=== PATIENT | female | born 1985 | race Caucasian/White ===

== ENCOUNTER 2017-02-13 15:28 | Emergency (ER) | payer OTHER ==
[~2017-02-13] VITALS: Ht 162.6 cm; Wt 84.4 kg
--- NOTE | ~2017-02-13 | CT71 ---
[facility] A Service [facility] RADIOLOGY TEXT RESULTS PATIENT: EARLE CURTIS LOCATION: SED : 83 UNIT #: [id number] AGE: [address]: Tiara Naik MD SEX: F ORDER DR: [id number] [address] [address] [id number] E MR#: [id number] Acc #: [id number] NAME: EARLE CURTIS : 1985 SEX: F STUDY DATE/TIME: 02/13/2017 21:45 UNIT: SED ROOM: STUDY DESCRIPTION: CT Head Wo Contrast Attending Physician: Tiara Naik M.D. Ordering Physician: Tiara Naik M.D. Primary Care Physician: No Primary Care Physician MEDICAL IMAGING REPORT This report is preliminary unless electronic signature is present. EXAM CT head. INDICATION Right-side body numbness and tingling for [address] of the head without contrast. This CT exam was performed with one or more of the following radiation dose reduction techniques: automatic exposure control, adjustment of mA and/or kV according to patient size, and iterative reconstruction. COMPARISON None available. FINDINGS Axial noncontrast images were obtained from the skull base to the vertex. Ventricular size and configuration are normal. There is no evidence of acute infarct or hemorrhage. There are no extraaxial fluid collections. No mass lesion or mass effect is seen. There are no skull fractures. IMPRESSION Normal noncontrast head CT. Dictated by... Get Cunha M.D. THIS IS AN ELECTRONICALLY VERIFIED REPORT Get Cunha M.D. at 02/14/2017 7:52 PM [facility] A Service [facility] RADIOLOGY TEXT RESULTS PATIENT: EARLE CURTIS LOCATION: SED : 83 UNIT #: [id number] AGE: [address]: Tiara Naik MD SEX: F ORDER DR: Marcial TD: 02/14/2017 19:27 JOB #: [id number] MEDICAL IMAGING REPORT Page 1 of 1
--- NOTE | ~2017-02-13 | CT17 ---
[facility] A Service of [facility] RADIOLOGY TEXT RESULTS PATIENT: EARLE CURTIS LOCATION: SED : 83 UNIT #: [id number] AGE: [address]: Tiara Naik MD SEX: F ORDER DR: [id number] [place] [id number] E MR#: [id number] Acc #: [id number] NAME: EARLE CURTIS : 1985 SEX: F STUDY DATE/TIME: 02/13/2017 21:48 UNIT: SED ROOM: STUDY DESCRIPTION: CT Angio Head Attending Physician: Tiara aNik M.D. Ordering Physician: Tiara Naik M.D. Primary Care Physician: Primary Care Physician No MEDICAL IMAGING REPORT This report is preliminary unless electronic signature is present. EXAM CT angio head 02/13 at 21:48 INDICATIONS Right side body numbness and tingling that started Wednesday of this week. FINDINGS Please see CT ANGIO NECK report for combined text results. Dictated by... Robert Barraza Jr., M.D. THIS IS AN ELECTRONICALLY VERIFIED REPORT Robert Barraza Jr., M.D. at 02/15/2017 3:12 AM KERI/viral TD: 02/14/2017 19:57 JOB #: [id number] MEDICAL IMAGING REPORT Page 1 of 1
--- NOTE | ~2017-02-13 | CT23 ---
[facility] A Service of [facility] RADIOLOGY TEXT RESULTS PATIENT: EARLE CURTIS LOCATION: SED : 83 UNIT #: [id number] AGE: [address]: Tiara Naik MD SEX: F ORDER DR: [id number] [address] [address] [id number] E MR#: [id number] Acc #: [id number] NAME: EARLE CURTIS : 1985 SEX: F STUDY DATE/TIME: 02/13/2017 21:48 UNIT: SED ROOM: STUDY DESCRIPTION: CT Angio Neck Attending Physician: Tiara Naik M.D. Ordering Physician: Tiara Naik M.D. Primary Care Physician: Primary Care Physician No MEDICAL IMAGING REPORT This report is preliminary unless electronic signature is present. EXAM Head and neck CT angiogram 02/13 at 21:48 INDICATIONS Right side body numbness and tingling that started Wednesday of this week. COMPARISON Head CT 02/13/2017 TECHNIQUE Axial images were obtained through the head and neck following IV contrast administration. 3-D reformats were obtained. This CT exam was performed with one or more of the following radiation dose reduction techniques: Automatic exposure control, adjustment of mA and/or kV according to patient size, and iterative reconstruction. FINDINGS Upper lungs are clear. No abnormal enhancement is seen on the exam. Within the neck, there is no carotid or vertebral plaque disease. There is no dissection. There is no stenosis by NASCET criteria. 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 The left vertebral artery is widely patent. Intracranially, there is no flow-limiting stenosis by NASCET criteria. No aneurysm or vascular malformation is seen. There is no vessel cutoff. Major dural venous sinuses are patent. IMPRESSION 1. 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 Head-neck CT angiogram is otherwise negative. There is zero percent stenosis by NASCET criteria in the head or neck. There is no intracranial aneurysm. There is no carotid or vertebral dissection. [facility] A Service of [facility] & [facility] RADIOLOGY TEXT RESULTS PATIENT: EARLE CURTIS LOCATION: SED : 83 UNIT #: [id number] AGE: [address]: Tiara Naik MD SEX: F ORDER DR: Dictated by... Robert Barraza Jr., M.D. THIS IS AN ELECTRONICALLY VERIFIED REPORT Robert Barraza Jr., M.D. at 02/15/2017 3:12 AM KERI/viral TD: 02/14/2017 19:52 JOB #: [id number] MEDICAL IMAGING REPORT Page 1 of 1
--- NOTE | ~2017-02-13 | CR72 ---
[facility] A Service of [facility] & [facility] RADIOLOGY TEXT RESULTS PATIENT: EARLE CURTIS LOCATION: SED : 83 UNIT #: [id number] AGE: [address]: Tiara Naik MD SEX: F ORDER DR: [id number] [address] [address] [id number] E MR#: [id number] Acc #: [id number] NAME: EARLE CURTIS : 1985 SEX: F STUDY DATE/TIME: 02/13/2017 21:38 UNIT: SED ROOM: STUDY DESCRIPTION: CR Chest Single View Portable Attending Physician: Tiara Naik M.D. Ordering Physician: Tiara Naik M.D. Primary Care Physician: No Primary Care Physician MEDICAL IMAGING REPORT This report is preliminary unless electronic signature is present. EXAM Single view chest. FINDINGS Single portable AP view of the chest compared to 09/23/2011. Heart and mediastinal contours are normal. Lungs are clear. IMPRESSION Negative chest radiograph. Dictated by... Get Cunha M.D. THIS IS AN ELECTRONICALLY VERIFIED REPORT Get Cunha M.D. at 02/14/2017 7:52 PM GORDON/tiana TD: 02/14/2017 19:23 JOB #: [id number] MEDICAL IMAGING REPORT Page 1 of 1
[~2017-02-13 15:28] MED LIST: BACTRIM DS TABL1 TA1 PO; FLEXERIL PO; HYDROCODON-ACE1 EAC4 PO; IBUPROFEN PO; NO MEDICATIONS; PHENERGAN25 M1 PO; PYRIDIUM PO; ULTRAM PO
[2017-02-13 21:05] LABS: BASOPHIL# 0.1 X10e3 (0-0.3); BASOPHIL% 0.8 % (0-2.5); EOSINOPHIL# 0.3 X10e3 (0-0.7); EOSINOPHIL% 3.3 % (0.0-7.0); HEMATOCRIT 42.9 % (35.0-45.0); HEMOGLOBIN 14.5 gm/dL (12.0-16.0); LYMPHOCYTE# 2.6 X10e3 (1.0-3.5); LYMPHOCYTE% 31.3 % (17.0-45.0); MEAN CELL VOLUME 91.1 FL (83-96); MEAN CORPUSCULAR HEMOGLOBIN 30.8 PG (28-34); MEAN CORPUSCULAR HGB CONC 33.8 g/dL (30-36); MEAN PLATELET VOLUME 9.1 FL (6.5-11.5); MONOCYTE# 0.7 X10e3 (0-1.0); MONOCYTE% 7.7 % (3.0-12.0); NEUTROPHIL# 4.8 X10e3 (1.5-7.1); NEUTROPHIL% 56.9 % (40-75); PLATELET COUNT 199 X10e3 (140-420); RED BLOOD COUNT 4.71 X10e (3.90-5.30); RED CELL DISTRIBUTION WIDTH 13.4 % (11.0-15.5); WHITE BLOOD COUNT 8.4 X10e3 (4.0-10.5)
[2017-02-13 21:06] LABS: URINE APPEARANCE CLEAR; URINE BILIRUBIN NEG (NEG); URINE BLOOD 3+ (NEG); URINE COLOR YELLOW; URINE GLUCOSE NEG (NORM); URINE KETONE NEG (NEG); URINE LEUKOCYTE ESTERASE NEG (NEG); URINE NITRATE NEG (NEG); URINE PROTEIN NEG (NEG); URINE UROBILINOGEN 0.2 MG/DL (NORM)
[2017-02-13 21:07] LABS: MICRO INDICATED? YES; URINE SOURCE CLEAN CATCH
[2017-02-13 21:07] LABS: DIFF IND NO
[2017-02-13 21:08] LABS: CULTURE INDICATED? NO; URINE BACTERIA NEG (NEG); URINE MUCUS PRESENT; URINE RBC 25-50 /[HPF] (0-2); URINE SQUAMOUS EPITHELIAL CELL OCCAS /[HPF]; URINE WBC 0-2 /[HPF] (0-5)
[2017-02-13 21:11] LABS: INR 1.2; PROTHROMBIN TIME (PATIENT) 13.1 SECONDS (9.5-12.4)
[2017-02-13 21:19] LABS: PARTIAL THROMBOPLASTIN TIME 31.3 SECONDS (25.6-38.1)
[2017-02-13 21:20] LABS: ALBUMIN SERUM 4.6 g/dL (3.5-5.0); ALKALINE PHOSPHATASE 97 U/L (32-92); ALT (SGPT) 13 U/L (10-40); AST (SGOT) 15 U/L (10-42); BILIRUBIN,TOTAL 0.3 mg/dL (0.2-2.0); BLOOD UREA NITROGEN 5 mg/dL (9-23); BUN/CREATININE RATIO 8.33; CALCIUM SERUM 9.1 mg/dL (8.4-10.2); CARBON DIOXIDE 27 mmol/L (22-31); CHLORIDE 104 mmol/L (100-111); CREATININE SERUM 0.6 mg/dL (0.6-1.4); GLOM FILT RATE Estimated 119.8 mL/min (>60); GLUCOSE FASTING 109 mg/dL (70-110); POTASSIUM 3.8 mmol/L (3.5-5.1); PROTEIN TOTAL SERUM 7.8 g/dL (6.0-8.3); SODIUM 139 mmol/L (135-145)
[2017-02-13 21:22] LABS: BILIRUBIN, DIRECT <0.1 mg/dL (0.0-0.2); BILIRUBIN,INDIRECT 0.2 mg/dL (0.0-0.9)
[2017-02-24] MEDS ORDERED: NO MEDICATIONS (11:01)
== END 2017-02-14 00:06 | disposition home or self-care (01) ==
LOC: SED 15:28
PROVIDERS: Emergency Medicine
DX: R20.2 Paresthesia of skin (principal); F17.210 Nicotine dependence, cigarettes, uncomplicated
CPT/HCPCS: 36415; 70450; 70496; 70498; 71010; 80048; 80076; 81003; 84703; 85025; 85610; 85730; 99284; Q9967

== ENCOUNTER → 2017-02-16 | Outpatient (CLI) | payer OTHER ==
--- NOTE | ~2017-02-16 | MR31 ---
[facility] A Service of [facility] & [facility] RADIOLOGY TEXT RESULTS PATIENT: EARLE CURTIS LOCATION: CMRI : 83 UNIT #: [id number] AGE: [address]: Dino Conti II, MD SEX: F ORDER DR: [id number] [facility] [address] [place], [place] [address] [id number] O MR#: [id number] Acc #: [id number] NAME: EARLE CURTIS : 1985 SEX: F STUDY DATE/TIME: 02/16/2017 19:22 UNIT: CMRI ROOM: STUDY DESCRIPTION: MR Cervical WWo Contrast Attending Physician: Dino Conti II., M.D. Referring Physician: Dino Conti II., M.D. Ordering Physician: Dino Conti II., M.D. Primary Care Physician: Sage Alvarado M.D. MRI CENTER REPORT This report is preliminary unless electronic signature is present. EXAM Cervical spine MR with and without contrast 02/16/2017 PROCEDURE Routine cervical spine MR with and without contrast. COMPARISON None. HISTORY One week history of right side numbness. FINDINGS Spine alignment is normal. Cord signal is normal. The paraspinous soft tissues are unremarkable. There is some very slight degenerative change but no canal stenosis at any level. There is some mild right foraminal narrowing at C4-5, but no other substantial foraminal stenosis is seen. Postcontrast images show no abnormal enhancement. IMPRESSION No substantial canal or foraminal stenosis and no abnormal cord signal. No abnormal enhancement. There is some mild right foraminal narrowing at C4-5 but no other substantial foraminal compromise is seen. STAT * RESULT Dictated by... Graham Alcocer M.D. THIS IS AN ELECTRONICALLY VERIFIED REPORT Graham Alcocer M.D. at 02/19/2017 4:50 PM [facility] A Service of [facility] & [facility] RADIOLOGY TEXT RESULTS PATIENT: [facility]AR[facility] CURTIS [facility] UN[facility] #: [id number] AGE: [address]: Dino Conti II, MD SEX: F ORDER DR: Sam TD: 02/17/2017 12:10 JOB #: [id number] MRI CENTER REPORT Page 1 of 1 COPY
--- NOTE | ~2017-02-16 | MR17 ---
[facility]. [facility] A Service of [facility] & [facility] RADIOLOGY TEXT RESULTS PATIENT: EARLE CURTIS LOCATION: CMRI : [birth year] UNIT #: [id number] AGE: [address]: Dino Conti II, MD SEX: F ORDER DR: [id number] [facility] [address] [place], [place] [address] [id number] O MR#: [id number] Acc #: [id number] NAME: EARLE CURTIS : 1985 SEX: F STUDY DATE/TIME: 02/16/2017 18:58 UNIT: CMRI ROOM: STUDY DESCRIPTION: MR Brain WWo Contrast Attending Physician: Dino Conti II., M.D. Referring Physician: Dino Conti II., M.D. Ordering Physician: Dino Conti II., M.D. Primary Care Physician: Sage Alvarado M.D. MRI CENTER REPORT This report is preliminary unless electronic signature is present. EXAM Brain MRI with and without contrast 02/16/[address] 02/13/2017. PROCEDURE Routine brain MR with and without contrast. HISTORY Right side numbness sudden onset for 1 week. FINDINGS There is a small focus of FLAIR and T2 hyperintensity, with some T2 shine through on diffusion about 10-11 mm in size along the posterior margin of the left internal capsule. There may be some faint associated enhancement on postcontrast images. In addition, there is some abnormal T2 signal along the lateral border of the left lateral ventricular temporal horn, but brain parenchymal signal is otherwise normal. There is no hydrocephalus or extraaxial fluid collection. Normal flow voids are seen in the cerebral vessels. The extracranial structures and bone marrow signal are normal. IMPRESSION 1. There is a modestly well-defined area of abnormal FLAIR and T2 signal in the left posterior limb internal capsule 10-11 mm in size as well as a linear area of some T2 hyperintensity on the lateral border of the left lateral ventricular temporal horn which may be associated with slight volume loss. 2. Postcontrast images show some faint enhancement associated with the left internal capsule lesion. Findings overall are most suggestive of STS. [facility] A Service of [facility] & [facility] RADIOLOGY TEXT RESULTS PATIENT: EARLE CURTIS [facility] [birth year] UNIT #: [id number] AGE: [address]: Dino Conti II, MD SEX: F ORDER DR: multiple sclerosis with 2 separate typical appearing white matter lesions in what appear to be different stages of evolution. Given the time course and lack of significant abnormal restricted diffusion, ischemia is felt unlikely. The brain itself is otherwise normal. STAT * RESULT Dictated by... Graham Alcocer M.D. THIS IS AN ELECTRONICALLY VERIFIED REPORT Graham Alcocer M.D. at 02/19/2017 4:50 PM YOON/franklin TD: 02/17/2017 12:01 JOB #: [id number] MRI CENTER REPORT Page 1 of 1 COPY
== END | disposition home or self-care (01) ==
LOC: CMRI 17:55
DX: R20.2 Paresthesia of skin (principal); R20.0 Anesthesia of skin; R93.7 Abnormal findings on diagnostic imaging of other parts of musculoskeletal system; M99.81 Other biomechanical lesions of cervical region
CPT/HCPCS: 70553; 72156; A9577

== ENCOUNTER → 2017-02-23 | Outpatient (CLI) | payer OTHER | END | disposition home or self-care (01) | LOC: CSSDAY 09:15 | DX: G35 Multiple sclerosis (principal) | CPT/HCPCS: 96365; J2930 ==

== ENCOUNTER → 2017-02-24 | Outpatient (CLI) | payer OTHER | END | disposition home or self-care (01) | LOC: CSSDAY 09:15 | DX: R51 Headache (principal); Z79.899 Other long term (current) drug therapy | CPT/HCPCS: 96365; J2930 ==

== ENCOUNTER → 2017-02-25 | Outpatient (CLI) | payer OTHER | END | disposition home or self-care (01) | LOC: CSSDAY 10:28 | DX: R51 Headache (principal); Z79.899 Other long term (current) drug therapy | CPT/HCPCS: 96365; J2930 ==

== ENCOUNTER → 2017-02-26 | Outpatient (CLI) | payer OTHER | END | disposition home or self-care (01) | LOC: CSSDAY 09:29 | DX: R51 Headache (principal); Z79.899 Other long term (current) drug therapy | CPT/HCPCS: 96365; J2930 ==

== ENCOUNTER → 2017-02-27 | Outpatient (CLI) | payer OTHER | END | disposition home or self-care (01) | LOC: CSSDAY 06:38 | DX: R51 Headache (principal); Z79.899 Other long term (current) drug therapy | CPT/HCPCS: 96365; J2930 ==